=== PATIENT | male | born 1960 | race Caucasian/White ===

== ENCOUNTER 2017-02-18 18:12 | Emergency (ER) | payer OTHER ==
[2017-02-18] VITALS (9 sets, daily range): BP systolic 176–232; BP diastolic 91–120
[~2017-02-18] VITALS: Ht 185.4 cm; Wt 93.0 kg
[~2017-02-18 18:12] MED LIST: METOPROLOL100 MG PO; MOTRIN800 MG PO
[2017-02-18 18:34] LABS: BASO # 0.1 10*3/uL (0.0-0.1); BASO % 0.5 % (0.0-1.0); EOS # 0.1 10*3/uL (0.0-0.4); EOS % 1.1 % (1.0-4.0); HEMATOCRIT 43.6 % (42.0-52.0); HEMOGLOBIN 14.5 g/dl (14.0-18.0); LYMPH # 3.9 10*3/uL (1.3-4.4); LYMPH % 33.3 % (27.0-41.0); MEAN CELL VOLUME 87.9 fl (80.0-94.0); MEAN CORPUSCULAR HGB 29.2 pg (27.0-31.0); MEAN CORPUSCULAR HGB CONC 33.3 g/dl (33.0-37.0); MEAN PLATELET VOLUME 9.1 fl (9.6-12.3); MONO # 0.6 10*3/uL (0.1-1.0); MONO % 5.4 % (3.0-9.0); NEUT # 6.9 10*3/uL (2.3-7.9); NEUT % 59.3 % (47.0-73.0); PLATELET COUNT AUTOMATED 239 10*3/uL (130-400); RED BLOOD COUNT 4.96 10*6/uL (4.50-5.90); RED CELL DISTRI WIDTH 13.1 % (0-14.5); WHITE BLOOD COUNT 11.7 10*3/uL (4.8-10.8)
[2017-02-18 18:50] LABS: ALBUMIN 4.1 gm/dl (3.1-4.5); ALKALINE PHOSPHATASE 87 U/L (45-117); BUN 16 mg/dl (7-24); CHLORIDE 103 mmol/L (98-107); CREATININE 0.95 mg/dL (0.70-1.30); MAGNESIUM 2.4 mg/dL (1.5-2.1); POTASSIUM 3.8 mmol/L (3.5-5.1); SGOT/AST 16 IU/L (3-35); SGPT/ALT 18 U/L (12-78); SODIUM 138 mmol/L (136-145); TOTAL PROTEIN 8.2 gm/dL (6.4-8.2)
[2017-02-18 18:51] LABS: ACT PARTIAL THROMBO TIME 25.9 SECONDS (20.8-31.5); INTERNATIONAL NORM RATIO 1.1 (2.0-3.5); TROPONIN I < 0.015 ng/ml (<0.045)
--- NOTE | 2017-02-18 19:00 | NUR ---
LABETOLOL GIVEN FOR HTN, BLOOD PRESSURE 191/91 AT THIS TIME. WILL CONTINUE TO MONITOR.
--- NOTE | 2017-02-18 19:13 | NUR ---
NURSE TO NURSE REPORT GIVEN TO THIS RN.PT OFF UNIT AT THIS TIME AT CT.
--- NOTE | 2017-02-18 19:33 | NUR ---
PT STATES HE IS FEELING ALOT BETTER.VITALS REASSESSED.
[2017-02-19] MEDS ORDERED: ASPIR LOW81 MG PO (08:26)
[2017-02-19] MEDS ORDERED: LISINOPRIL10 M1 PO (14:40)
[2017-02-19] MEDS ORDERED: ATORVASTATIN CA80 M1 PO (14:40)
[2017-02-19] MEDS ORDERED: CLOPIDOGREL75 MG PO (14:40)
== END 2017-02-18 23:02 | disposition admitted as inpatient to this hospital (09) ==
LOC: ED 18:12 → EDHOLD 20:09 → ED 20:09 → EDHOLD 20:22 → 5E 20:22 → ED 23:02
PROVIDERS: Emergency Medicine
DX: I63.9 Cerebral infarction, unspecified (principal); I16.0 Hypertensive urgency

== ENCOUNTER 2017-02-18 20:09 | Inpatient (IN) | payer OTHER ==
[~2017-02-18] VITALS: Ht 185.4 cm; Wt 106.1 kg
[2017-02-18 20:45] VITALS: BP 190/106
--- NOTE | 2017-02-18 21:45 | NUR ---
A 56, admitted to , under the services of MARIOLA Mcdermott DO with a diagnosis of HYPERTENSIVE CRISIS STROKE. Chief complaint is WAKING UP WITH SLURRED SPEECH AND TINGLING IN ARMS/LEGS. Patient arrived via stretcher from ER. Monitor applied. Initial assessment completed. Vital signs taken and recorded. MARIOLA MCDERMOTT DO notified of admission to the unit. Orders received. See assessment for past medical history, medications and allergies. Patient and/or family oriented to unit. [facility] visitation policy reviewed. Clothing/patient valuable form completed. MARSHA CHANG
[2017-02-19] VITALS: BP 180/82
[2017-02-19 04:00] VITALS: BP 136/68
[2017-02-19 07:55] LABS: BASO % 0.4 % (0.0-1.0); EOS # 0.2 10*3/uL (0.0-0.4); HEMATOCRIT 41.3 % (42.0-52.0); HEMOGLOBIN 13.6 g/dl (14.0-18.0); LYMPH # 3.6 10*3/uL (1.3-4.4); LYMPH % 36.3 % (27.0-41.0); MEAN CELL VOLUME 89.8 fl (80.0-94.0); MEAN CORPUSCULAR HGB 29.6 pg (27.0-31.0); MEAN CORPUSCULAR HGB CONC 32.9 g/dl (33.0-37.0); MEAN PLATELET VOLUME 9.4 fl (9.6-12.3); MONO # 0.7 10*3/uL (0.1-1.0); NEUT # 5.2 10*3/uL (2.3-7.9); NEUT % 53.7 % (47.0-73.0); PLATELET COUNT AUTOMATED 220 10*3/uL (130-400); RED CELL DISTRI WIDTH 13.2 % (0-14.5); WHITE BLOOD COUNT 9.8 10*3/uL (4.8-10.8)
[2017-02-19 08:00] VITALS: BP 152/75
--- NOTE | 2017-02-19 08:00 | NUR ---
Resolution Agent in to talk to patient. Patient states lives at HOME with HIS DAUGHTER. There are 15 steps in the home. Physician: [place] [facility] Home health services: NONE Patient's level of ADLs: INDEPENDENT Patient has working utilities: YES DME: NONE Follow-up physician's appointment after d/c: WILL BE MADE PRIOR TO DC Does patient want to access PORTAL?: Discharge plan HOME. PHANI HERBERT
[2017-02-19 08:08] LABS: BUN 17 mg/dl (7-24); CHLORIDE 104 mmol/L (98-107); CHOLESTEROL 174 mg/dL (<200); CREATININE 1.05 mg/dL (0.70-1.30); MAGNESIUM 2.6 mg/dL (1.5-2.1); PHOSPHOROUS 5.3 mg/dL (2.5-4.9); POTASSIUM 3.9 mmol/L (3.5-5.1); SODIUM 141 mmol/L (136-145); TRIGLYCERIDES 163 mg/dl (<150); VLDL CHOLESTEROL 33 mg/dL (6-40)
[2017-02-19 08:12] LABS: ACT PARTIAL THROMBO TIME 26.6 SECONDS (20.8-31.5); INTERNATIONAL NORM RATIO 1.1 (2.0-3.5)
[2017-02-19 08:16] LABS: FREE T4 1.07 ng/dl (0.76-1.46); HDL CHOLESTEROL 32 mg/dl (40-60); LDL CHOLESTEROL 109 mg/dL (9-159)
[2017-02-19] MEDS ORDERED: ASPIR LOW81 MG PO (08:26)
--- NOTE | 2017-02-19 08:27 | NUR ---
MED REC DISCUSSED WITH PT, PT STATES THE ONLY MEDICINE HE TAKES AT HOME IS LOW DOSE ASPIRIN AND THAT [facility]CONTINUE ALL [facility] MEDS TWO YEARS DUE TO HIM BEING WELL CONTROLLED.
--- NOTE | 2017-02-19 10:44 | NUR ---
PT DOWN FOR MRI AT THIS TIME.
--- NOTE | 2017-02-19 11:20 | NUR ---
central service tech called me to notify that pt was unable to tolerate mri, he became too claustraphobic. spoke with them that we could possibly get a premedication ordered. they state that they are done for the day and won't be in until wednesday. Notified Dr Yi of this.
--- NOTE | 2017-02-19 11:28 | NUR ---
SPOKE WITH DR TEJEDA REGARDING ATIVAN ORDER, WHETHER IT WAS ORDERED TO PREMEDICATE PT AND IF MRI IS STAYING FOR THIS MRI. HE STATES HE THINKS DR PERKINS SPOKE WITH SOMEONE REGARDING THIS ISSUE. SPOKE WITH NURSING SERVICE PROMOTER SALESPERSON ABOUT MRI BEING COMPLETED. CALLS MADE AT THIS TIME TO MRI. AWAITING CALL BACK.
[2017-02-19 11:32] LABS: VITAMIN D, 25-HYDROXY 26.3 ng/mL (30-100)
--- NOTE | 2017-02-19 11:40 | NUR ---
PT BACK FROM MRI/ULTRASOUND AT THIS TIME.
[2017-02-19 11:50] VITALS: BP 167/82
--- NOTE | 2017-02-19 12:46 | NUR ---
SPEECH SAW PT FOR EVAL, STATES PT IS OK FOR REGULAR DIET AND THIN LIQUIDS. UPDATED DR TEJEDA.
--- NOTE | 2017-02-19 14:35 | NUR ---
SPEECH PATHOLOGY CONSULT RECEIVED AND APPRECIATED TO CLINICALLY EVALUATE PT'S SWALLOWING FUNCTION. HPI: MR. DIANA IS A 56 Y.O. MALE ADMITTED TO [facility] ON 02/18/17 WITH CHIEF COMPLAINTS OF SLURRED SPEECH AND LEFT FACIAL WEAKNESS. CT APPRECIATED NO ACUTE INTRACRANIAL INITIAL S/S RESOVLED WITHIN SEVERAL HOURS; THEREFORE, LIKELY TIA. CXR DEMONSTRATED NO ACUTE INFILTRATE. PMHX: HLD, HTN. GENERAL COMMENTS: DISCUSSED CASE WITH RN WHO HAD NO CONCERNS REGARDING SWALLOWING. UPON ENTRANCE TO ROOM, PT WAS AWAKE AND SEATED UPRIGHT IN BED. HE REMAINED AWAKE, ALERT, AND COOPERATIVE THROUGHOUT THE ENCOUNTER. HE REPORTED THAT INITIAL SYMPTOMS APPEAR TO BE LARGELY RESOLVED. MR. DIANA DENIED CURRENT CONCERNS REGARDING SPEECH AND SWALLOWING. ORAL MECHANISM EXAM: STRENGTH, SPEED, ACCURACY, ROM, AND STEADINESS OF MOVEMENT OF UPPER FACE, JAW, LIPS, TONGUE, AND PALATE WERE WFL. VERY MILD DROOP NOTED ON THE LEFT LOWER FACE DURING MOVEMENT ONLY. VOLITIONAL COUGH WAS ADEQUATE FOR SHARPNESS. MOTOR SPEECH EXAM: PT'S SPEECH WAS C/B ADEQUATE RESPIRATORY SUPPORT FOR SENTENCE-LENGTH UTTERANCES AND NORMAL PHONATION, PROSODY, AND ARTICULATORY PRECISION. SPEECH AMRS WERE ADEQUATE FOR RATE, RHYTHM, AND PRECISION; SMRS WERE ADEQUATE FOR COORDINATION. CONVERSATIONAL INTELLIGIBILITY WAS 100%. SWALLOWING: PT SELF-FED THE FOLLOWING CONSISTENCIES: THIN LIQUIDS VIA CUP X6, TSP OF PUREE X2, AND BITES OF COARSE SOLIDS X3. ORAL PHASE: ADEQUATE BOLUS ACCEPTANCE WITH NO ANTERIOR LOSS NOTED. TIMELY AND ADEQUATE MASTICATION OF COARSE SOLIDS. TRACE ORAL RESIDUE OF SOLIDS, CLEARED WITH LIQUID WASH. PHARYNGEAL PHASE: HLE VISUALIZED. BRIEF THROAT CLEAR NOTED FOLLOWING TSPS OF PUREE, ALTHOUGH NOT IMMEDIATELY FOLLOWING BITE. NO OTHER OVERT S/S OF ASPIRATION/PENETRATION WERE OBSERVED ACROSS THE ENCOUNTER. IMPRESSIONS: PT PRESENTS WITH NORMAL OROPHARYNGEAL SWALLOWING FUNCTION. RECOMMEND RESUMING REGULAR DIET WITH THIN LIQUIDS. SPEECH APPEARS NORMAL AT THIS TIME WELL. NO FURTHER F/U IS INDICATED AT THIS TIME. RECOMMENDATIONS: 1. INITIATE REGULAR DIET WITH THIN LIQUIDS 2. STANDARD ASPIRATION PRECAUTIONS: FULLY UPRIGHT, AWAKE, AND ALERT FOR ALL PO; SMALL BITES/SIPS; ORAL CARE AT LEAST BID POC: NO FURTHER UNDERWRITING CONSULTANT F/U IS INDICATED AT THIS TIME. PLEASE RE-CONSULT IF C/F CHANGE IN SPEECH/SWALLOWING FUNCTION. FINDINGS AND RECOMMENDATIONS WERE REVIEWED WITH PT'S RN WHO EXPRESSED UNDERSTANDING AND AGREEMENT. ANA CARLOS MA-[facility]
[2017-02-19] MEDS ORDERED: ATORVASTATIN CA80 M1 PO (14:40)
[2017-02-19] MEDS ORDERED: LISINOPRIL10 M1 PO (14:40)
[2017-02-19] MEDS ORDERED: CLOPIDOGREL75 MG PO (14:40)
--- NOTE | 2017-02-19 15:21 | NUR ---
Discharge instructions reviewed with patient/family. Patient receptive and verbalizes understanding. Follow-up care arranged. Written instructions given to patient/family. IV site and wood machine carver removed. Pt denied need for tranport to lobby. ANTONINA FLEMING
== END 2017-02-19 15:21 | disposition home or self-care (01) | DRG 69 ==
LOC: 5E 20:09
PROVIDERS: Internal Medicine; ADMIT Internal Medicine
DX: G45.8 Other transient cerebral ischemic attacks and related syndromes (principal); E83.41 Hypermagnesemia; I10 Essential (primary) hypertension; I16.1 Hypertensive emergency; D72.829 Elevated white blood cell count, unspecified; D64.9 Anemia, unspecified; R73.9 Hyperglycemia, unspecified; F40.240 Claustrophobia; E78.1 Pure hyperglyceridemia; Z53.29 Procedure and treatment not carried out because of patient's decision for other reasons; Z80.0 Family history of malignant neoplasm of digestive organs; Z80.8 Family history of malignant neoplasm of other organs or systems; Z79.82 Long term (current) use of aspirin; Z79.899 Other long term (current) drug therapy